=== PATIENT | female | born 1935 | race Caucasian/White ===

== ENCOUNTER → 2017-09-03 | Outpatient (CLI) | payer MEDICARE, OTHER ==
[~2017-09-03] MED LIST: ADVAIR PO; ALBUTEROL PO; ANTI1CAP PO; BIOT25005 PO; CHOL500015 PO; CINN500C2 PO; CRAN300T PO; ESTR1TAB15 PO; FOLI0.8T2 PO; GARL10002 PO; GRAP50CA3 PO; LACT1CAP43 PO; LUTE1CAP PO; MIRA50TA PO; MULT-717 PO; NORCO PO; PSYL0.5215 PO; TIOT18CA INH; TRAZ100T15 PO; TRIA1CAP3 PO; VIT1CAPS44 PO; VITA1TAB3 PO
[2017-09-03 14:15] LABS: HEMATOCRIT 43.8 % (34.6-47.8); HEMOGLOBIN 14.2 g/dL (11.7-16.4); WHITE BLOOD COUNT 11.3 x10^3/uL (3.4-10)
[2017-09-03 14:25] LABS: ASPARTATE AMINO TRANSFERASE 6 U/L (15-37); BLOOD UREA NITROGEN 21 mg/dL (7-18)
[2017-09-03 14:27] LABS: PATH.CAST-FLAG NOT PRESENT; SPERM-FLAG NOT PRESENT; SRC-FLAG NOT PRESENT; XTAL-FLAG NOT PRESENT; YLC-FLAG NOT PRESENT
== END | disposition home or self-care (01) ==
LOC: STAR 12:48
PROVIDERS: ATTEND Orthopaedic Surgery
DX: Z01.818 Encounter for other preprocedural examination (principal); M16.12 Unilateral primary osteoarthritis, left hip; J43.9 Emphysema, unspecified; Z79.899 Other long term (current) drug therapy
CPT/HCPCS: 36415; 80053; 81001; 85025; 87077; 87081; 87086; 93005

== ENCOUNTER → 2017-11-02 | Outpatient (CLI) | payer MEDICARE, OTHER ==
[~2017-11-02] MED LIST changes: +ALBU1.25 NEB; +ALBU90AE INH; +DICL100G19 TD; +FLUT1DIS3 INH; +GABA300C10 PO; +HYDR-3307 PO; +MIRA25TA PO
[2017-11-02 10:39] LABS: BASOPHILS # (AUTO) 0.06 x10^3/uL (0-0.1); BASOPHILS % (AUTO) 1 % (0-1); EOSINOPHILS # (AUTO) 0.09 x10^3/uL (0-0.4); EOSINOPHILS % (AUTO) 1 % (1-7); LYMPHOCYTES # (AUTO) 2.06 x10^3/uL (1-3.4); LYMPHOCYTES % (AUTO) 17 % (22-44); MD NO; MEAN CORPUSCULAR HEMOGLOBIN 28.6 pg (27.0-34.8); MEAN CORPUSCULAR HGB CONC 32.8 g/dL (32.4-35.8); MEAN CORPUSCULAR VOLUME 87.4 fL (80-100); MEAN PLATELET VOLUME 8.4 fL (7.4-10.4); MONOCYTES # (AUTO) 1.13 x10^3/uL (0.2-0.8); MONOCYTES % (AUTO) 9 % (2-9); NEUTROPHILS # (AUTO) 9.02 x10^3/uL (1.8-6.8); NEUTROPHILS % (AUTO) 73 % (42-75); PLATELET COUNT 348 x10^3/uL (130-400); RED BLOOD COUNT 4.34 x10^6/uL (3.82-5.3); RED CELL DISTRIBUTION WIDTH 16.1 % (9.6-15.2)
[2017-11-02 10:46] LABS: CULTURE INDICATED? YES; MICROSCOPIC INDICATED
[2017-11-02 10:48] LABS: ALBUMIN 3.1 g/dL (3.4-5.0); ANION GAP 7 mmol/L (5-15); CALCIUM 8.5 mg/dL (8.5-10.1); CHLORIDE 105 mmol/L (98-107)
[2017-11-02 10:52] LABS: ALANINE AMINOTRANSFERASE 12 U/L (12-78); ALKALINE PHOSPHATASE 73 U/L (45-117); BILIRUBIN,TOTAL 0.7 mg/dL (0.2-1.0); CREATININE 0.79 mg/dL (0.55-1.02)
== END | disposition home or self-care (01) ==
LOC: STAR 08:58
PROVIDERS: ATTEND Orthopaedic Surgery
DX: Z01.818 Encounter for other preprocedural examination (principal); R94.31 Abnormal electrocardiogram [ECG] [EKG]; R82.99 Other abnormal findings in urine; Z96.642 Presence of left artificial hip joint
CPT/HCPCS: 36415; 80053; 81001; 85025; 87081; 87086; 93005

== ENCOUNTER 2017-11-07 05:59 | Inpatient (IN) | payer MEDICARE, OTHER ==
[2017-11-02 09:35] VITALS: BP 132/76
[~2017-11-07] VITALS: Ht 165.1 cm; Wt 83.6 kg
[~2017-11-07 05:59] MED LIST changes: -DICL100G19 TD
[2017-11-07] MEDS ORDERED: LIDOCAINE 1%, 2ML ONE (06:15)
[2017-11-07] MEDS ORDERED: LACTATED RINGERS 1,000 ML IV SCH (06:20)
[2017-11-07] MEDS ORDERED: LIDOCAINE 1%, 2ML SQ PRN (06:30)
[2017-11-07] MEDS ORDERED: SODIUM CHLORIDE 0.9% 100 ML ONE (06:47)
[2017-11-07] MEDS ORDERED: ROPivacaine/PF 0.2%, 10 ML ONE (06:47)
[2017-11-07] MEDS ORDERED: KETOROLAC 60 MG/2 ML ONE (06:47)
[2017-11-07] MEDS ORDERED: EPINEPHRINE 1 MG/ML, 1ML ONE (06:47)
[2017-11-07] MEDS ORDERED: TRANEXAMIC ACID 100 MG/ML, 10ML ONE (06:47)
[2017-11-07] MEDS ORDERED: MIDAZOLAM 1 MG/ML, 2ML ONE (06:48)
[2017-11-07] MEDS ORDERED: FENTANYL PF 250 MCG/5ML ONE (06:48)
[2017-11-07] MEDS ORDERED: DICL100G19 TD (06:51)
[2017-11-07] MEDS ORDERED: NEOSTIGMINE 1 MG/ML, 10ML ONE (07:09)
[2017-11-07] MEDS ORDERED: PROPOFOL 10 MG/ML, 20ML ONE (07:09)
[2017-11-07] MEDS ORDERED: ONDANSETRON 2MG/ML, 2ML ONE (07:09)
[2017-11-07] MEDS ORDERED: ROCURONIUM 10 MG/ML,10ML ONE (07:09)
[2017-11-07] MEDS ORDERED: GLYCOPYRROLATE 0.2MG/1ML, 5ML ONE (07:09)
[2017-11-07] MEDS ORDERED: hydrALAzine 20 MG/ML, 1ML ONE (07:09)
[2017-11-07] MEDS ORDERED: ACETAMINOPHEN 325 MG TABLET PO PRN (08:00)
[2017-11-07] MEDS ORDERED: hydrALAzine 20 MG/ML, 1ML IV PRN (08:00)
[2017-11-07] MEDS ORDERED: ONDANSETRON 2MG/ML, 2ML IVPush PRN (08:00)
[2017-11-07] MEDS ORDERED: HYDROmorphone 1 MG/ML, 1ML IV PRN ×2 (08:00→09:00)
[2017-11-07] MEDS ORDERED: OXYcodone 5 MG/5 ML ORAL.SOL UDC PO PRN (08:00)
[2017-11-07] MEDS ORDERED: HYDROmorphone 2 MG/ML, 1ML ONE (08:31)
[2017-11-07] MEDS: TEMPLATE NON-FORMULARY MED. (Mirabegron** (Myrbetriq**) 25 MG) HOMEMEDPO SCH (09:00)
[2017-11-07] MEDS ORDERED: BISACODYL 10 MG SUPP PR PRN (09:00)
[2017-11-07] MEDS ORDERED: PROMETHAZINE 25 MG/ML, 1ML IM PRN (09:00)
[2017-11-07] MEDS: TEMPLATE NON-FORMULARY MED. (Tiotropium Bromide** (Spiriva**) 18 MCG) INH SCH (09:00)
[2017-11-07] MEDS ORDERED: SENNA/DOCUSATE TABLET PO PRN (09:00)
[2017-11-07] MEDS ORDERED: PROMETHAZINE 12.5 MG SUPP PR PRN (09:00)
[2017-11-07] MEDS ORDERED: ALBUTEROL SULFATE INH PRN (09:00)
[2017-11-07] MEDS ORDERED: ACETAMINOPHEN 650 MG/20.3 ML UDC PO PRN (09:00)
[2017-11-07] MEDS ORDERED: ONDANSETRON 2MG/ML, 2ML IV PRN (09:00)
[2017-11-07] MEDS ORDERED: DIPHENHYDRAMINE 50 MG CAPSULE PO PRN (09:00)
[2017-11-07] MEDS ORDERED: ONDANSETRON 4 MG TABLET PO PRN (09:00)
[2017-11-07] MEDS ORDERED: DIAZEPAM 5 MG TABLET PO PRN (09:00)
[2017-11-07] MEDS ORDERED: ZOLPIDEM 5MG TABLET PO PRN (09:00)
[2017-11-07] MEDS ORDERED: MAGNESIUM HYDROXIDE 8%, 30ML UDC PO PRN (09:00)
[2017-11-07] MEDS ORDERED: ALUMINUM/MAG/SIMETHICONE 30 ML UDC PO PRN (09:00)
[2017-11-07] MEDS ORDERED: HYDROcodone/APAP 10/325 MG TABLET PO PRN (09:00)
[2017-11-07] MEDS ORDERED: TRANEXAMIC ACID 1,000 MG in SODIUM CHLORIDE 0.9% 100 ML IVPB ONE (09:15)
[2017-11-07] MEDS ORDERED: OXYcodone 5 MG/5 ML ORAL.SOL UDC ONE (09:46)
[2017-11-07] MEDS ORDERED: FENTANYL PF 100 MCG/2ML ONE (09:46)
[2017-11-07] MEDS ORDERED: ACETAMINOPHEN 650 MG/20.3 ML UDC ONE (09:46)
[2017-11-07] MEDS: FENTANYL PF 100 MCG/2ML IV PRN ×2 (09:50→10:00)
[2017-11-07 10:45] VITALS: BP 141/71
[2017-11-07] MEDS ORDERED: ALBUTEROL SULFATE 2.5 MG/3 ML NPPB PRN (11:00)
[2017-11-07] MEDS: MULTIVITAMINS/MINERALS TABLET PO SCH (11:10)
[2017-11-07] MEDS: HYDROcodone/APAP 10/325 MG TABLET PO SCH ×4 (11:10→23:17)
[2017-11-07] MEDS: DOCUSATE 100 MG CAPSULE PO SCH ×2 (11:10→21:00)
[2017-11-07] MEDS: TRIAMTERENE-HCTZ 37.5/25 MG TABLET PO SCH (11:12)
[2017-11-07] MEDS: KETOROLAC 30 MG/1 ML IV SCH ×2 (12:15→20:31)
[2017-11-07] MEDS: D5%-0.45% NACL 1,000 ML IV SCH ×2 (12:15→19:30)
[2017-11-07 14:46] VITALS: BP 134/65
[2017-11-07] MEDS: CEFAZOLIN PMX 2GM/50ML 50 ML IVPB SCH ×2 (15:21→23:04)
[2017-11-07 19:20] VITALS: BP 148/70
[2017-11-07] MEDS: TRAZODONE 100MG TABLET PO SCH (23:04)
[2017-11-08 01:40] VITALS: BP 100/61
[2017-11-08] MEDS: D5%-0.45% NACL 1,000 ML IV SCH ×3 (03:02→19:30)
[2017-11-08] MEDS: HYDROcodone/APAP 10/325 MG TABLET PO SCH ×2 (03:30→07:29)
[2017-11-08] MEDS: KETOROLAC 30 MG/1 ML IV SCH ×3 (04:27→19:29)
[2017-11-08] MEDS: ASPIRIN 81 MG TABLET EC PO SCH (05:56)
[2017-11-08] MEDS ORDERED: DEXAMETHASONE 4 MG/ML, 1ML IVPush SCH (06:00)
[2017-11-08 06:59] VITALS: BP 105/60
[2017-11-08] MEDS: MULTIVITAMINS/MINERALS TABLET PO SCH (08:50)
[2017-11-08] MEDS: TEMPLATE NON-FORMULARY MED. (Mirabegron** (Myrbetriq**) 25 MG) HOMEMEDPO SCH (08:50)
[2017-11-08] MEDS: TRIAMTERENE-HCTZ 37.5/25 MG TABLET PO SCH (08:50)
[2017-11-08] MEDS: DOCUSATE 100 MG CAPSULE PO SCH ×2 (08:50→21:08)
[2017-11-08] MEDS: TEMPLATE NON-FORMULARY MED. (Tiotropium Bromide** (Spiriva**) 18 MCG) INH SCH (08:51)
[2017-11-08] MEDS: FLUTICASONE/VILANTEROL 100-25MCG/INH INH SCH (08:51)
[2017-11-08 13:21] VITALS: BP 119/61
[2017-11-08 18:49] VITALS: BP 116/65
[2017-11-08] MEDS: TRAZODONE 100MG TABLET PO SCH (21:08)
[2017-11-09 01:10] VITALS: BP 108/69
[2017-11-09] MEDS: D5%-0.45% NACL 1,000 ML IV SCH ×2 (03:30→12:03)
[2017-11-09] MEDS: ASPIRIN 81 MG TABLET EC PO SCH (05:28)
[2017-11-09 07:18] VITALS: BP 104/57
[2017-11-09] MEDS: TRIAMTERENE-HCTZ 37.5/25 MG TABLET PO SCH (08:08)
[2017-11-09] MEDS: MULTIVITAMINS/MINERALS TABLET PO SCH (08:08)
[2017-11-09] MEDS: FLUTICASONE/VILANTEROL 100-25MCG/INH INH SCH (08:09)
[2017-11-09] MEDS: DOCUSATE 100 MG CAPSULE PO SCH (08:09)
[2017-11-09] MEDS: TEMPLATE NON-FORMULARY MED. (Tiotropium Bromide** (Spiriva**) 18 MCG) INH SCH (09:16)
[2017-11-09] MEDS: TEMPLATE NON-FORMULARY MED. (Mirabegron** (Myrbetriq**) 25 MG) HOMEMEDPO SCH (09:16)
[2017-11-09 13:22] VITALS: BP 155/63
[2017-11-09 15:05] VITALS: BP 148/63
[2017-11-09] MEDS ORDERED: HYDR-879 PO (15:27)
[2017-11-09] MEDS ORDERED: ASPI-496 PO (15:28)
== END 2017-11-09 16:00 | DRG 470 ==
LOC: ORIP 05:59 → 4NOR 10:40
PROVIDERS: ADMIT Orthopaedic Surgery; ATTEND Orthopaedic Surgery
PROC: 0SRB01Z Replacement of Left Hip Joint with Metal Synthetic Substitute, Open Approach (ICD-10-PCS; principal; 2017-11-07 07:30)
DX: M16.12 Unilateral primary osteoarthritis, left hip (principal); Z96.641 Presence of right artificial hip joint; F32.9 Major depressive disorder, single episode, unspecified; I10 Essential (primary) hypertension; R32 Unspecified urinary incontinence; M70.72 Other bursitis of hip, left hip; J45.909 Unspecified asthma, uncomplicated; Z87.891 Personal history of nicotine dependence; Z88.0 Allergy status to penicillin; Z88.2 Allergy status to sulfonamides; Z79.899 Other long term (current) drug therapy; Y93.89 Activity, other specified; Z88.8 Allergy status to other drugs, medicaments and biological substances
CPT/HCPCS: 36415; 72170; 85014; 85018; 86850; 86900; C1713; J0171; J0690; J1100; J1170; J1885; J2250; J2405; J2704; J2710; J2795; J3010; J3490; C1776; J0360